=== PATIENT | male | born 1930 | race Caucasian/White ===

== ENCOUNTER 2016-04-22 15:00 | Inpatient (IN) | payer OTHER, MEDICARE ==
[~2016-04-22] VITALS: Ht 170.2 cm; Wt 84.0 kg
[~2016-04-22 15:00] MED LIST: AMLODIPINE BESYL5 MG PO; APRESOLINE50 MG PO; ASPIRIN81 M2 PO; ATORVASTATIN CA40 MG PO; AZITHROMYCIN500 M1 PO; BUMETANIDE1 MG PO; BUMEX1 MG PO; CALCITRIOL0.25 MCG PO; CARVEDILOL3.125 MG PO; CLOPIDOGREL75 MG PO; COREG12.5 M1 PO; DIAZEPAM5 MG PO; EPOGEN,PRO20000 UNIT SQ; ERGOCALCIF50000 UNIT PO; FISH OIL 1,0001 EA11 PO; FISH OIL 1,0001 EAC7 PO; FUROSEMIDE20 MG PO; GABAPENTIN100 MG PO; HYDROCODON-ACE1 EAC7 PO; IMDUR60 MG PO; LASIX20 MG PO; LISINOPRIL20 MG PO; LO-DOSE ASPIRIN81 M1 PO; LOPRESSOR50 MG PO; METOPROLOL TART50 MG PO; NEURONTIN100 MG PO; NITROSTAT0.4 MG SL; NOVOLIN N100 UNITS/ SC; PANTOPRAZOLE SO40 MG PO; PROCRIT SQ; PROCRIT2000 UNIT1 IV; RANITIDINE HCL150 MG PO; REPAGLINIDE0.5 MG PO; SUPRAX200 MG PO; TYLENOL EXTRA500 MG PO; VITAMIN D1000 INTUN PO; ZESTRIL40 MG PO
[2016-04-22 15:52] LABS: HEMATOCRIT 26.2 % (38.0-50.0); MCH 29.7 PG (29.0-34.0); MCHC 31.7 G/DL (30.0-36.0); MCV 93.9 FL (86-99); MEAN PLAT.VOLUME 11.9 uM^3 (9.0-12.4); PLATELET COUNT 105 K/uL (156-360); RBC DIS.WIDTH-SD 48.8 % (39-53); RED BLOOD COUNT 2.79 M/uL (4.00-5.50); WHITE BLOOD COUNT 5.9 K/uL (4.1-10.2)
[2016-04-22 16:05] LABS: CHLORIDE 105 mEq/L (99-109); POTASSIUM 4.2 mEq/L (3.7-5.4); SODIUM 138 mEq/L (136-147)
[2016-04-22 16:08] LABS: ANION GAP 13 MEQ/L (2-14)
[2016-04-22 16:11] LABS: GFR ESTIMATE (CALCULATED) 15 mL/min/
[2016-04-22 16:18] LABS: TROP-I INTERPRETATION NEGATIVE; TROPONIN-I 0.08 ng/mL (0.0-0.30)
[2016-04-22 16:46] LABS: GLUCOSE 194 mg/dL (70-99); UREA NITROGEN (BUN) 111 mg/dL (9-23)
[2016-04-22 17:04] LABS: MAGNESIUM 2.4 mg/dL (1.3-2.7)
[2016-04-22 17:07] LABS: TOTAL BILIRUBIN 0.4 mg/dL (0.0-1.0)
[2016-04-22 17:09] LABS: ALKALINE PHOSPHATASE 162 IU/L (3-129)
[2016-04-22 17:11] LABS: DIRECT BILIRUBIN 0.2 mg/dL (0.0-0.3)
[2016-04-22] MEDS ORDERED: ATORVASTATIN CA80 MG PO (18:04)
[2016-04-22] MEDS ORDERED: PROCRIT10000 UNI1 IV (18:04)
[2016-04-22] MEDS ORDERED: NOVOLIN N100 UNITS/ SC ×2 (18:09→18:10)
[2016-04-22 21:08] VITALS: BP 170/73
[2016-04-23] VITALS (7 sets, daily range): BP systolic 123–174; BP diastolic 60–93
[2016-04-23 07:58] LABS: POINT-OF-CARE METER ID UU14174225; POINT-OF-CARE USER ID 611181312
[2016-04-23 10:57] LABS: HEMATOCRIT 24.2 % (38.0-50.0); MCH 29.7 PG (29.0-34.0); MCHC 31.8 G/DL (30.0-36.0); MCV 93.4 FL (86-99); MEAN PLAT.VOLUME 12.6 uM^3 (9.0-12.4); PLATELET COUNT 97 K/uL (156-360); RBC DIS.WIDTH-CV 15.7 % (11.8-14.6); RBC DIS.WIDTH-SD 53.6 % (39-53); RED BLOOD COUNT 2.59 M/uL (4.00-5.50); WHITE BLOOD COUNT 4.4 K/uL (4.1-10.2)
[2016-04-23 11:34] LABS: ANION GAP 9 MEQ/L (2-14); CHLORIDE 101 MEQ/L (99-109); GFR ESTIMATE (CALCULATED) 17 mL/min/; GLUCOSE 263 mg/dL (70-99); SAMPLE HEMOLYSIS CHECK 0; SAMPLE ICTERIC CHECK 0; SAMPLE LIPEMIA CHECK 0; SODIUM 135 MEQ/L (136-147)
[2016-04-23 11:38] LABS: UREA NITROGEN (BUN) 101 mg/dL (9-23)
[2016-04-23 11:50] LABS: POINT-OF-CARE METER ID UU14174225; POINT-OF-CARE USER ID 611181312
[2016-04-23 15:58] LABS: POINT-OF-CARE METER ID UU14174225
[2016-04-24 04:17] VITALS: BP 156/70
[2016-04-24 07:38] VITALS: BP 184/83
[2016-04-24 08:49] LABS: HEMATOCRIT 25.4 % (38.0-50.0); MCH 29.2 PG (29.0-34.0); MCHC 31.5 G/DL (30.0-36.0); MCV 92.7 FL (86-99); MEAN PLAT.VOLUME 12.6 uM^3 (9.0-12.4); PLATELET COUNT 95 K/uL (156-360); RBC DIS.WIDTH-CV 15.5 % (11.8-14.6); RBC DIS.WIDTH-SD 52.8 % (39-53); RED BLOOD COUNT 2.74 M/uL (4.00-5.50); WHITE BLOOD COUNT 4.7 K/uL (4.1-10.2)
[2016-04-24 09:19] LABS: ANION GAP 11 MEQ/L (2-14); CHLORIDE 104 MEQ/L (99-109); GFR ESTIMATE (CALCULATED) 18 mL/min/; POTASSIUM 4.2 MEQ/L (3.7-5.4); SAMPLE HEMOLYSIS CHECK 0; SAMPLE ICTERIC CHECK 0; SAMPLE LIPEMIA CHECK 0; SODIUM 138 MEQ/L (136-147); UREA NITROGEN (BUN) 99 mg/dL (9-23)
[2016-04-24 09:21] LABS: GLUCOSE 101 mg/dL (70-99)
[2016-04-24 10:52] VITALS: BP 182/75
[2016-04-24 15:23] VITALS: BP 168/66
[2016-04-24 19:45] VITALS: BP 178/70
[2016-04-25 00:02] VITALS: BP 160/75
[2016-04-25 07:51] VITALS: BP 168/65
[2016-04-25 10:28] LABS: ANION GAP 10 MEQ/L (2-14); CHLORIDE 102 MEQ/L (99-109); POTASSIUM 4.1 MEQ/L (3.7-5.4); SAMPLE HEMOLYSIS CHECK 0; SAMPLE ICTERIC CHECK 0; SAMPLE LIPEMIA CHECK 0; SODIUM 136 MEQ/L (136-147)
[2016-04-25 10:35] LABS: GFR ESTIMATE (CALCULATED) 19 mL/min/; UREA NITROGEN (BUN) 90 mg/dL (9-23)
[2016-04-25 10:40] LABS: GLUCOSE 166 mg/dL (70-99)
[2016-04-25 10:45] LABS: HEMATOCRIT 26.4 % (38.0-50.0); MCH 29.4 PG (29.0-34.0); MCHC 31.8 G/DL (30.0-36.0); MCV 92.3 FL (86-99); RBC DIS.WIDTH-CV 15.7 % (11.8-14.6); RBC DIS.WIDTH-SD 52.6 % (39-53); RED BLOOD COUNT 2.86 M/uL (4.00-5.50); WHITE BLOOD COUNT 4.5 K/uL (4.1-10.2)
[2016-04-25 10:47] LABS: MEAN PLAT.VOLUME 13.1 uM^3 (9.0-12.4); PLATELET COUNT 101 K/uL (156-360)
[2016-04-25 11:53] VITALS: BP 155/63
[2016-04-25 15:04] VITALS: BP 147/65
[2016-04-25 19:45] VITALS: BP 147/64
[2016-04-25 23:40] VITALS: BP 139/71
[2016-04-26 04:00] VITALS: BP 133/76
[2016-04-26 07:55] VITALS: BP 183/80
[2016-04-26 08:45] LABS: ANION GAP 13 MEQ/L (2-14); CHLORIDE 107 MEQ/L (99-109); GFR ESTIMATE (CALCULATED) 20 mL/min/; POTASSIUM 4.2 MEQ/L (3.7-5.4); SAMPLE HEMOLYSIS CHECK 0; SAMPLE ICTERIC CHECK 0; SAMPLE LIPEMIA CHECK 0; SODIUM 141 MEQ/L (136-147); UREA NITROGEN (BUN) 91 mg/dL (9-23)
[2016-04-26 08:46] LABS: GLUCOSE 100 mg/dL (70-99)
[2016-04-26 08:49] LABS: HEMATOCRIT 26.2 % (38.0-50.0); MCH 29.8 PG (29.0-34.0); MCHC 32.1 G/DL (30.0-36.0); MCV 92.9 FL (86-99); RBC DIS.WIDTH-CV 15.7 % (11.8-14.6); RBC DIS.WIDTH-SD 53.2 % (39-53); RED BLOOD COUNT 2.82 M/uL (4.00-5.50); WHITE BLOOD COUNT 4.5 K/uL (4.1-10.2)
[2016-04-26 08:50] LABS: MEAN PLAT.VOLUME 13.2 uM^3 (9.0-12.4); PLATELET COUNT 93 K/uL (156-360)
[2016-04-26 11:28] VITALS: BP 134/55
[2016-04-26] MEDS ORDERED: BUMETANIDE0.5 MG PO (14:20)
[2016-04-26 15:46] VITALS: BP 138/72
== END 2016-04-26 18:10 | disposition home health service (06) | DRG 682 ==
LOC: EME 15:00 → 5SOUTH 18:12 → EDOF 18:12 → 5SOUTH 20:52
PROVIDERS: Hospitalist; Internal Medicine; Nurse Practitioner Adult Health
DX: N17.9 Acute kidney failure, unspecified (principal); I13.0 Hypertensive heart and chronic kidney disease with heart failure and stage 1 through stage 4 chronic kidney disease, or unspecified chronic kidney disease; I50.43 Acute on chronic combined systolic (congestive) and diastolic (congestive) heart failure; J98.11 Atelectasis; I25.5 Ischemic cardiomyopathy; I25.10 Atherosclerotic heart disease of native coronary artery without angina pectoris; F32.9 Major depressive disorder, single episode, unspecified; D50.9 Iron deficiency anemia, unspecified; N18.4 Chronic kidney disease, stage 4 (severe); E11.29 Type 2 diabetes mellitus with other diabetic kidney complication; E78.5 Hyperlipidemia, unspecified; Z96.651 Presence of right artificial knee joint; Z95.1 Presence of aortocoronary bypass graft; D63.1 Anemia in chronic kidney disease
CPT/HCPCS: 36415; 71020; 80048; 80069; 80076; 81050; 82570; 82728; 82948; 83540; 83735; 83880; 84156; 84466; 84484; 85025; 85027; 93005; 99281; 99285; J0881; J1644; J1756; J1815; J7050

== ENCOUNTER 2016-05-29 10:11 | Observation (INO) | payer OTHER, MEDICARE ==
[2016-05-29] VITALS (7 sets, daily range): BP systolic 165–199; BP diastolic 58–82
[~2016-05-29] VITALS: Ht 170.2 cm; Wt 86.9 kg
[~2016-05-29 10:11] MED LIST changes: +ATORVASTATIN CA80 MG PO; +BUMETANIDE0.5 MG PO; +PROCRIT10000 UNI1 IV
[2016-05-29 11:14] LABS: HEMATOCRIT 24.5 % (38.0-50.0); MCH 29.2 PG (29.0-34.0); MCV 94.2 FL (86-99); MEAN PLAT.VOLUME 12.3 uM^3 (9.0-12.4); PLATELET COUNT 100 K/uL (156-360); RBC DIS.WIDTH-CV 16.5 % (11.8-14.6); RBC DIS.WIDTH-SD 53.4 % (39-53); WHITE BLOOD COUNT 4.1 K/uL (4.1-10.2)
[2016-05-29 11:25] LABS: CHLORIDE 109 mEq/L (99-109); POTASSIUM 4.9 mEq/L (3.7-5.4); SODIUM 138 mEq/L (136-147)
[2016-05-29 11:26] LABS: GLUCOSE 216 mg/dL (70-99)
[2016-05-29 11:28] LABS: ANION GAP 9 MEQ/L (2-14)
[2016-05-29 11:30] LABS: GFR ESTIMATE (CALCULATED) 20 mL/min/
[2016-05-29 11:31] LABS: UREA NITROGEN (BUN) 89 mg/dL (9-23)
[2016-05-29 12:28] LABS: TOTAL BILIRUBIN 0.6 mg/dL (0.0-1.0)
[2016-05-29 12:29] LABS: ALKALINE PHOSPHATASE 148 IU/L (3-129)
[2016-05-29 12:31] LABS: INTER. NORMALIZED RATIO 1.1; PROTHROMBIN TIME 11.5 (9.2-11.2)
[2016-05-29 12:32] LABS: DIRECT BILIRUBIN 0.2 mg/dL (0.0-0.3)
[2016-05-29] MEDS ORDERED: APRESOLINE50 MG PO (13:48)
[2016-05-29] MEDS ORDERED: BUMETANIDE0.5 MG PO (13:50)
[2016-05-29 17:27] LABS: POINT-OF-CARE METER ID UU13113700
[2016-05-29 18:22] LABS: MCV 92.9 FL (86-99)
[2016-05-30] VITALS (10 sets, daily range): BP systolic 121–190; BP diastolic 59–82
[2016-05-30 06:54] LABS: HEMATOCRIT 29.1 % (38.0-50.0); MCHC 30.9 G/DL (30.0-36.0); MCV 90.7 FL (86-99); MEAN PLAT.VOLUME 11.7 uM^3 (9.0-12.4); PLATELET COUNT 96 K/uL (156-360); RBC DIS.WIDTH-CV 19.3 % (11.8-14.6); RBC DIS.WIDTH-SD 64.8 % (39-53)
[2016-05-30 06:59] LABS: RED BLOOD COUNT 3.21 M/uL (4.00-5.50)
[2016-05-30 07:18] LABS: ANION GAP 9 MEQ/L (2-14); CHLORIDE 110 MEQ/L (99-109); GFR ESTIMATE (CALCULATED) 21 mL/min/; POTASSIUM 4.1 MEQ/L (3.7-5.4); SAMPLE HEMOLYSIS CHECK 0; SAMPLE ICTERIC CHECK 0; SAMPLE LIPEMIA CHECK 0; SODIUM 142 MEQ/L (136-147); UREA NITROGEN (BUN) 85 mg/dL (9-23)
[2016-05-30 07:19] LABS: GLUCOSE 38 mg/dL (70-99)
[2016-05-30 08:01] LABS: POINT-OF-CARE METER ID UU13113700
[2016-05-30 12:41] LABS: POINT-OF-CARE METER ID UU13113700
[2016-05-30 17:24] LABS: POINT-OF-CARE METER ID UU14162513
[2016-05-30 21:33] LABS: POINT-OF-CARE METER ID UU13113700
[2016-05-31 00:27] VITALS: BP 177/76
[2016-05-31 04:00] VITALS: BP 152/72
[2016-05-31 07:27] LABS: HEMATOCRIT 31.7 % (38.0-50.0); MCH 27.8 PG (29.0-34.0); MCHC 31.5 G/DL (30.0-36.0); MCV 88.1 FL (86-99); MEAN PLAT.VOLUME 11.7 uM^3 (9.0-12.4); PLATELET COUNT 87 K/uL (156-360); RBC DIS.WIDTH-CV 19.9 % (11.8-14.6); RBC DIS.WIDTH-SD 64.5 % (39-53)
[2016-05-31 07:51] VITALS: BP 160/76
[2016-05-31 08:17] LABS: POINT-OF-CARE METER ID UU14162513
[2016-05-31] MEDS ORDERED: CANASA1000 MG PR (10:22)
== END 2016-05-31 12:29 | disposition home or self-care (01) ==
LOC: EME 10:11 → 5WEST 13:34 → EDOF 13:34 → 5WEST 15:34
PROVIDERS: Hospitalist; Internal Medicine; Internal Medicine Gastroenterology; Physician Assistant
PROC: 30233N1 Transfusion of Nonautologous Red Blood Cells into Peripheral Vein, Percutaneous Approach (ICD-10-PCS; principal; 2016-05-29)
DX: K62.5 Hemorrhage of anus and rectum (principal); E11.649 Type 2 diabetes mellitus with hypoglycemia without coma; D62 Acute posthemorrhagic anemia; E11.22 Type 2 diabetes mellitus with diabetic chronic kidney disease; N18.4 Chronic kidney disease, stage 4 (severe); I25.5 Ischemic cardiomyopathy; I25.10 Atherosclerotic heart disease of native coronary artery without angina pectoris; Z95.1 Presence of aortocoronary bypass graft; Z85.46 Personal history of malignant neoplasm of prostate; D69.59 Other secondary thrombocytopenia; Z79.82 Long term (current) use of aspirin; Z91.041 Radiographic dye allergy status; Z98.890 Other specified postprocedural states; Z96.651 Presence of right artificial knee joint
CPT/HCPCS: 71010; 80048; 80076; 82948; 83880; 85014; 85018; 85027; 85610; 86850; 86900; 86901; 86920; 99281; 99285; G0378; J1815; P9016

== ENCOUNTER 2016-07-15 10:05 | Emergency (ER) | payer OTHER, MEDICARE ==
[~2016-07-15] VITALS: Ht 170.2 cm; Wt 83.7 kg
[~2016-07-15 10:05] MED LIST changes: +CANASA1000 MG PR
[2016-07-15 11:47] LABS: EOSINOPHIL (%) 5.3 % (0-5); EOSINOPHIL COUNT 0.3 K/uL (0-0.3); IMMATURE GRANULOCYTE (%) 0.3 % (0.0-0.7); INSTRUMENT ABS NEUTROPHIL CT 4.1 K/uL; LYMPHOCYTE COUNT 0.9 K/uL (1.0-2.8); MCH 29.1 PG (29.0-34.0); MCHC 32.3 G/DL (30.0-36.0); MCV 90.1 FL (86-99); MEAN PLAT.VOLUME 12.4 uM^3 (9.0-12.4); MONOCYTE COUNT 0.7 K/uL (0-0.8); NEUTROPHIL (%) 68.2 % (45-76); NEUTROPHIL COUNT 4.1 K/uL (1.8-6.4); PLATELET COUNT 105 K/uL (156-360); RBC DIS.WIDTH-CV 18.1 % (11.8-14.6); RBC DIS.WIDTH-SD 60.3 % (39-53); RED BLOOD COUNT 3.33 M/uL (4.00-5.50)
[2016-07-15 11:55] LABS: CHLORIDE 105 mEq/L (99-109); POTASSIUM 4.3 mEq/L (3.7-5.4); SODIUM 137 mEq/L (136-147)
[2016-07-15 11:57] LABS: GLUCOSE 351 mg/dL (70-99)
[2016-07-15 11:58] LABS: ANION GAP 10 MEQ/L (2-14)
[2016-07-15 11:59] LABS: TOTAL BILIRUBIN 0.4 mg/dL (0.0-1.0)
[2016-07-15 12:01] LABS: ALKALINE PHOSPHATASE 182 IU/L (3-129); GFR ESTIMATE (CALCULATED) 20 mL/min/
[2016-07-15 12:02] LABS: UREA NITROGEN (BUN) 74 mg/dL (9-23)
[2016-07-15] MEDS ORDERED: PROCARDIA XL30 MG PO (13:27)
[2016-07-15 14:43] VITALS: BP 109/57
== END 2016-07-15 14:40 | disposition home or self-care (01) ==
LOC: EME 10:05
PROVIDERS: Emergency Medicine
DX: I10 Essential (primary) hypertension (principal); E11.9 Type 2 diabetes mellitus without complications; I25.2 Old myocardial infarction; Z79.4 Long term (current) use of insulin; Z85.46 Personal history of malignant neoplasm of prostate; Z95.1 Presence of aortocoronary bypass graft; Z91.041 Radiographic dye allergy status
CPT/HCPCS: 80053; 85025; 93005; 99281; 99285

== ENCOUNTER 2016-07-25 16:50 | Inpatient (IN) | payer OTHER, MEDICARE ==
[~2016-07-25] VITALS: Ht 170.2 cm; Wt 86.0 kg
[~2016-07-25 16:50] MED LIST changes: +PROCARDIA XL30 MG PO
[2016-07-25 19:17] LABS: MCH 29.1 PG (29.0-34.0); MCHC 32.5 G/DL (30.0-36.0); MCV 89.5 FL (86-99); MEAN PLAT.VOLUME 12.3 uM^3 (9.0-12.4); PLATELET COUNT 112 K/uL (156-360); RBC DIS.WIDTH-CV 18.6 % (11.8-14.6); RBC DIS.WIDTH-SD 60.1 % (39-53); RED BLOOD COUNT 3.13 M/uL (4.00-5.50); WHITE BLOOD COUNT 5.6 K/uL (4.1-10.2)
[2016-07-25 19:43] LABS: CHLORIDE 105 mEq/L (99-109); POTASSIUM 4.6 mEq/L (3.7-5.4); SODIUM 138 mEq/L (136-147)
[2016-07-25 19:46] LABS: ANION GAP 16 MEQ/L (2-14)
[2016-07-25 19:49] LABS: GFR ESTIMATE (CALCULATED) 12 mL/min/
[2016-07-25 20:00] LABS: GLUCOSE 81 mg/dL (70-99); UREA NITROGEN (BUN) 142 mg/dL (9-23)
[2016-07-25] MEDS ORDERED: PROCARDIA XL30 MG PO (20:34)
[2016-07-25] MEDS ORDERED: BUMEX1 MG PO (20:35)
[2016-07-25] MEDS ORDERED: LO-DOSE ASPIRIN81 M1 PO (20:36)
[2016-07-25] MEDS ORDERED: REMERON15 M2 PO (20:37)
[2016-07-25 20:46] LABS: TROP-I INTERPRETATION NEGATIVE; TROPONIN-I 0.07 ng/mL (0.0-0.30)
[2016-07-26] VITALS (7 sets, daily range): BP systolic 139–174; BP diastolic 58–86
[2016-07-26 07:26] LABS: ANION GAP 12 MEQ/L (2-14); CHLORIDE 105 MEQ/L (99-109); GFR ESTIMATE (CALCULATED) 12 mL/min/; GLUCOSE 73 mg/dL (70-99); SAMPLE HEMOLYSIS CHECK 0; SAMPLE ICTERIC CHECK 0; SAMPLE LIPEMIA CHECK 0; SODIUM 139 MEQ/L (136-147)
[2016-07-26 07:27] LABS: HEMATOCRIT 24.7 % (38.0-50.0); MCV 90.8 FL (86-99); MEAN PLAT.VOLUME 13.2 uM^3 (9.0-12.4); PLATELET COUNT 89 K/uL (156-360); RBC DIS.WIDTH-CV 18.9 % (11.8-14.6); RED BLOOD COUNT 2.72 M/uL (4.00-5.50)
[2016-07-26 07:28] LABS: WHITE BLOOD COUNT 3.9 K/uL (4.1-10.2)
[2016-07-26 07:34] LABS: UREA NITROGEN (BUN) 137 mg/dL (9-23)
[2016-07-26 12:12] LABS: POINT-OF-CARE USER ID STWAMT
[2016-07-26 15:02] LABS: TYPE OF FLUID THORACENTESIS
[2016-07-26 15:25] LABS: BODY FLUID RBC'S 8000 /MM^3 (0-100); BODY FLUID WBC'S 188 /MM^3 (0-500)
[2016-07-26 15:46] LABS: BODY FLUID LDH 76 IU/L
[2016-07-26 16:19] LABS: BODY FLUID PROTEIN < 3.0 G/DL
[2016-07-26 16:43] LABS: BODY FLUID EOSINOPHILS 0 % (0-25); MONONUCLEAR WBC'S 97 %; POLYNUCLEAR WBC'S 3 % (0-25)
[2016-07-26 17:30] LABS: POINT-OF-CARE USER ID STWAMT
[2016-07-27] VITALS (7 sets, daily range): BP systolic 137–165; BP diastolic 51–88
[2016-07-27 05:59] LABS: IMM.RETIC FRACTION 6.2 % (3-19); RETIC HGB EQUIVALENT 36.7 (28-36)
[2016-07-27 06:20] LABS: IRON 52 MCG/DL (35-150)
[2016-07-27 06:36] LABS: URIC ACID 9.8 mg/dL (3.1-9.2)
[2016-07-27 06:44] LABS: ANION GAP 11 MEQ/L (2-14); CHLORIDE 106 MEQ/L (99-109); GFR ESTIMATE (CALCULATED) 13 mL/min/; POTASSIUM 4.3 MEQ/L (3.7-5.4); SAMPLE HEMOLYSIS CHECK 0; SAMPLE ICTERIC CHECK 0; SAMPLE LIPEMIA CHECK 0; SODIUM 138 MEQ/L (136-147)
[2016-07-27 06:50] LABS: GLUCOSE 178 mg/dL (70-99); UREA NITROGEN (BUN) 120 mg/dL (9-23)
[2016-07-27 07:13] LABS: RETICULOCYTE COUNT 1.4 % (0.5-1.8)
[2016-07-27 07:46] LABS: FERRITIN 150 NG/ML (22-322)
[2016-07-27 08:09] LABS: EOSINOPHIL (%) 4.5 % (0-5); EOSINOPHIL COUNT 0.2 K/uL (0-0.3); IMMATURE GRANULOCYTE (%) 0.5 % (0.0-0.7); INSTRUMENT ABS NEUTROPHIL CT 2.8 K/uL; LYMPHOCYTE COUNT 0.7 K/uL (1.0-2.8); MCH 28.7 PG (29.0-34.0); MCHC 31.2 G/DL (30.0-36.0); MCV 91.9 FL (86-99); MEAN PLAT.VOLUME 13.1 uM^3 (9.0-12.4); MONOCYTE (%) 11.7 % (3-12); MONOCYTE COUNT 0.5 K/uL (0-0.8); NEUTROPHIL (%) 66.6 % (45-76); NEUTROPHIL COUNT 2.8 K/uL (1.8-6.4); PLATELET COUNT 86 K/uL (156-360); RBC DIS.WIDTH-CV 18.8 % (11.8-14.6); RBC DIS.WIDTH-SD 62.4 % (39-53); RED BLOOD COUNT 2.72 M/uL (4.00-5.50); WHITE BLOOD COUNT 4.2 K/uL (4.1-10.2)
[2016-07-27 10:38] LABS: D-DIMER ELISA 1.46 mg/L FEU (< 0.57)
[2016-07-27 14:24] LABS: INTERNAL CONTROL VALID? YES
[2016-07-27 21:17] LABS: POINT-OF-CARE USER ID BHSKTD
[2016-07-28] VITALS (7 sets, daily range): BP systolic 127–184; BP diastolic 48–78
[2016-07-28 07:36] LABS: ANION GAP 10 MEQ/L (2-14); CHLORIDE 108 MEQ/L (99-109); GFR ESTIMATE (CALCULATED) 14 mL/min/; GLUCOSE 139 mg/dL (70-99); POTASSIUM 4.1 MEQ/L (3.7-5.4); SAMPLE HEMOLYSIS CHECK 0; SAMPLE ICTERIC CHECK 0; SAMPLE LIPEMIA CHECK 0; SODIUM 140 MEQ/L (136-147)
[2016-07-28 07:43] LABS: UREA NITROGEN (BUN) 120 mg/dL (9-23)
[2016-07-28 07:53] LABS: POINT-OF-CARE METER ID UU14188625
[2016-07-29 04:01] VITALS: BP 135/80
[2016-07-29 06:54] LABS: POTASSIUM ND MEQ/L (3.7-5.4)
[2016-07-29 08:27] LABS: POTASSIUM 4.1 MEQ/L (3.7-5.4)
[2016-07-29 08:49] LABS: CHLORIDE 111 mEq/L (99-109); SODIUM 142 mEq/L (136-147)
[2016-07-29 08:50] LABS: GLUCOSE 152 mg/dL (70-99)
[2016-07-29 08:52] LABS: ANION GAP 14 MEQ/L (2-14)
[2016-07-29 08:54] LABS: GFR ESTIMATE (CALCULATED) 16 mL/min/
[2016-07-29 08:57] LABS: UREA NITROGEN (BUN) 116 mg/dL (9-23)
== END 2016-07-29 14:34 | disposition hospice, home (50) | DRG 682 ==
LOC: EME 16:50 → 5SOUTH 23:17 → EDOF 23:17 → 5SOUTH 07-26 00:47
PROVIDERS: Internal Medicine; Internal Medicine Nephrology; Physician Assistant Medical
PROC: 0W9B3ZX Drainage of Left Pleural Cavity, Percutaneous Approach, Diagnostic (ICD-10-PCS; principal; 2016-07-26)
DX: N17.9 Acute kidney failure, unspecified (principal); E87.2 Acidosis; J90 Pleural effusion, not elsewhere classified; I13.2 Hypertensive heart and chronic kidney disease with heart failure and with stage 5 chronic kidney disease, or end stage renal disease; I50.23 Acute on chronic systolic (congestive) heart failure; N18.5 Chronic kidney disease, stage 5; D63.1 Anemia in chronic kidney disease; I25.10 Atherosclerotic heart disease of native coronary artery without angina pectoris; E11.22 Type 2 diabetes mellitus with diabetic chronic kidney disease; I25.5 Ischemic cardiomyopathy; E78.5 Hyperlipidemia, unspecified; I73.9 Peripheral vascular disease, unspecified; N28.1 Cyst of kidney, acquired; Z96.651 Presence of right artificial knee joint; Z95.1 Presence of aortocoronary bypass graft; Z79.4 Long term (current) use of insulin; Z85.46 Personal history of malignant neoplasm of prostate
CPT/HCPCS: 36415; 71020; 76770; 80048 91; 80069; 82272; 82728; 82746; 82945; 82948; 83540; 83615 91; 83880; 84157; 84466; 84484; 84550; 84999; 85025; 85027; 85045; 85379; 87070; 87075; 87205; 89051; 93005; 94799; 99281; 99284; J0881; J1815; J7120